=== PATIENT | male | born 1965 | race Caucasian/White ===

== ENCOUNTER 2018-12-14 08:16 | Day surgery (SDC) | payer BC ==
[~2018-12-14] VITALS: Ht 177.8 cm; Wt 84.1 kg
--- NOTE | ~2018-12-14 | OP ---
PATIENT NAME: ROSAMARIA BENNETT MEDICAL RECORD: [id number] :63 LOCATION:[facility] [place].[id number] ADMISSION DATE: SURGEON: MAULIK HAN MD DATE OF OPERATION: 12/14/2018 PREOPERATIVE DIAGNOSIS: Right parotid mass. POSTOPERATIVE DIAGNOSIS: Right parotid mass. PROCEDURE: Right parotidectomy. SURGEON: Maulik Han MD ANESTHESIA: General orotracheal. BLOOD LOSS: 5 cc. SPECIMENS: Right parotid. Frozen section diagnosis is Warthin's tumor. COMPLICATIONS: None. DISPOSITION: Recovery, stable. DESCRIPTION OF PROCEDURE: He was brought to the operating room, placed in the supine position, sedated and intubated by anesthesia. Eyes were taped. Head was turned to the left. Right neck and ear were cleaned with alcohol. The area of incision was injected with a total of 1 cc of 1% lidocaine with 1:100,000 epinephrine on a one-half inch 27-gauge needle. He was then prepped and draped in the usual sterile fashion, exposing the right corner of the eye and corner of the mouth. A #15 blade was used to make an incision. This was taken down to the tragal cartilage superiorly and sternocleidomastoid inferiorly. Flaps were elevated anteriorly with double prong skin hooks and Metzenbaum scissors. Two separate 2-0 silk stick ties were used anteriorly and one in the earlobe for retraction sutures. The tumor was fairly large, over 5 cm. Dissection anteriorly to the mastoid identified the facial nerve. It was followed anteriorly, following all the branches separately. I was able to lift the mass up superiorly. It was overlying the pes and all of the branches, but I was able to lift the mass up. I followed the branches underneath the mass and then slowly dissected out and reflected the tumor inferiorly. I used nerve stimulator to make sure that all the branches were accounted for since I did lift the mass off and dissect it out. I did this all the way from superior to inferior, dissecting the tumor loose anteriorly. Bipolar cautery and scissors were used to dissect through the gland superiorly and then eventually got the mass completely free from the posterior belly of the digastric and removed. This was sent for frozen, which returned Warthin's and much of it was felt to be quite cystic. The facial nerve branches were completely intact and visible from the cervical branch all the way up. The wound was copiously irrigated with saline. A drain was placed through a separate stab incision inferior to the wound. The incision was closed with interrupted 5-0 Vicryl. Skin was closed with combination of 5-0 and 6-0 Prolene. He was awakened, extubated, and transported to recovery in good condition. No complications. Facial nerve function was noted to be normal in recovery room. No complications. Counts were correct. TRANSINT:[id number] Voice Confirmation ID: [id number] DOCUMENT ID: [id number] OPERATIVE REPORT [id number] ROSAMARIA BENNETT ERIC MD CC: [id number] DICTATION DATE: 12/14/18 1548 CARDIOVASCULAR OPERATING ROOM NURSE: 12/14/18 1800 [address] [facility] [address] [place] [address]
[~2018-12-14 08:16] MED LIST: HYTRIN5 MG PO; ZIAC 10-6.25 MG1 TAB PO
[2018-12-14 09:03] LABS: HEMATOCRIT 43.5 % (42.0-54.0); HEMOGLOBIN 15.3 g/dL (13.5-17.5); MCH 36.5 pg (26.0-34.0); MCHC 35.2 g/dL (31.0-37.0); MCV 103.8 fL (80.0-100.0); MEAN PLATELET VOLUME 9.2 fL (7.4-10.4); RBC 4.19 10x6/uL (4.20-6.10); RDW 13.2 % (11.5-14.5); WBC 7.6 10x3/uL (4.8-10.8)
[2018-12-14] MEDS ORDERED: LOVASTATIN10 MG PO (09:13)
[2018-12-14 09:15] VITALS: BP 140/83; BMI 25.8
[2018-12-14 09:15] LABS: CALC OSMOLALITY 276 mosm/kg (275-300); CALCIUM 8.7 mg/dL (8.5-10.1); CHLORIDE - SERUM 103 mmol/L (98-107); GLUCOSE 96 mg/dL (74-106); POTASSIUM - SERUM 4.4 mmol/L (3.5-5.1); SODIUM 138 mmol/L (136-145); UREA NITROGEN 14 mg/dL (7-18); eGFR NON AFRICAN AMERICAN 83 mL/min (90-120)
--- NOTE | 2018-12-14 10:07 | HP ---
PATIENT: ROSAMARIA FREEMAN MEDICAL RECORD: [id number] ACCOUNT: [id number] LOCATION:[facility] : 63 ADMISSION DATE: 12/14/18 PCP: NIURKA WHITFIELD MD HISTORY AND PHYSICAL EXAMINATION PREOPERATIVE HISTORY AND PHYSICAL HISTORY OF PRESENT ILLNESS: Mr. Freeman is a 53-year-old male with a right parotid mass about 5 cm in size. Needle biopsy suggest Warthin's tumor. He is being admitted for right superficial parotidectomy. PAST MEDICAL HISTORY: Otherwise negative. PAST SURGICAL HISTORY: None. CURRENT MEDICATIONS: Lovastatin, bisoprolol, lorazepam. ALLERGIES: No known drug allergies. PHYSICAL EXAMINATION: GENERAL: Healthy-appearing. FACE: Normal, symmetric, no lesions. EYES: Sclerae and conjunctivae are normal. EARS: Canals and TMs are normal. NOSE: No mass, polyps or drainage. ORAL CAVITY AND OROPHARYNX: Tongue protrudes in midline. No lesions. No trismus. NECK: No masses, no adenopathy. He has a right 5 cm parotid mass at the angle of the mandible, in front of and under the right ear. CHEST: Clear. CARDIOVASCULAR: Regular rate and rhythm, no murmur. EXTREMITIES: Normal. IMPRESSION: Right parotid mass, needle biopsy consistent with Warthin's. He is a smoker. Clinically, it consistent with that. PLAN: Right parotidectomy. TRANSINT:[id number] Voice Confirmation ID: [id number] DOCUMENT ID: [id number] ANY BARROS MD at 1007 CC: [id number] DICTATION DATE: 12/08/18 1427 TRUCKING SUPERVISOR: 12/08/18 1509 [address] [facility] [address] [place] [address]
[2018-12-14 16:14] VITALS: BP 135/74
[2018-12-14 16:43] VITALS: BP 135/74; Ht 177.8 cm; Wt 84.1 kg
[2018-12-14 20:00] VITALS: BP 130/84
--- NOTE | 2018-12-14 20:00 | NUR ---
ASSESSMENT PER FLOWSHEET. PATIENT AND HIS WALKING IN HALLWAY. INCISION TO RT NECK C/D/I WITH SUSANA DRAIN IN PLACE. SMALL AMOUNT BLOODY DRAINAGE NOTED. IV PATENT LEFT FOREARM OF LR AT 50CC'S/HR SITE CLEAR.
--- NOTE | 2018-12-14 21:23 | NUR ---
REQUESTING PAIN PILL FOR A PAIN LEVEL OF #3-4. NORCO 5MG TAB ONE PO GIVEN FOR PAIN CONTROL. SCD'S ON. ALERT/ORIENTED X3 AT BEDSIDE. SR UP X2 CALL LIGHT WITHIN REACH.
--- NOTE | 2018-12-15 | NUR ---
EYES CLOSED RESPIRATIONS WITH EASE AND UNLABORED.
--- NOTE | 2018-12-15 02:30 | NUR ---
RESTING QUIETLY DENIES NEEDS.
[2018-12-15 04:00] VITALS: BP 152/88
--- NOTE | 2018-12-15 04:30 | NUR ---
RESTING QUIETLY DENIES NEEDS.
--- NOTE | 2018-12-15 06:26 | NUR ---
AWAKE DRINKING COFFEE WITH HIS . DENIES NEEDS.
[2018-12-15 08:52] VITALS: BP 146/82
[2018-12-15] MEDS ORDERED: HYDROCODON-ACE1 EAC7 PO (11:10)
== END 2018-12-15 12:50 | disposition home or self-care (01) ==
LOC: D.OPS 08:16 → D.PAN 11:15 → D.MS 15:56 → D.OPS 12-15 12:50
PROVIDERS: Anesthesiology; ATTEND Otolaryngology
DX: D11.0 Benign neoplasm of parotid gland (principal); Z01.812 Encounter for preprocedural laboratory examination

== ENCOUNTER → 2019-04-19 13:22 | Outpatient (CLI) | payer BC ==
[2018-12-14 16:43] VITALS: BMI 26.6
[~2019-04-19 13:22] MED LIST changes: +HYDROCODON-ACE1 EAC7 PO; +LOVASTATIN10 MG PO
== END | disposition home or self-care (01) ==
LOC: D.HCCARDIO 13:22
PROVIDERS: ATTEND Internal Medicine Cardiovascular Disease
DX: R06.02 Shortness of breath (principal); R06.00 Dyspnea, unspecified